=== PATIENT | female | born 1970 | race Caucasian/White ===

== ENCOUNTER 2019-02-11 00:33 | Inpatient (IN) | payer MEDICAID ==
[~2019-02-11] VITALS: Ht 162.6 cm; Wt 98.4 kg
--- NOTE | 2019-02-11 00:58 | NUR ---
PT BIBS. PT BEING DELUSIONAL, TALKING INCOHERENTLY, DOES NOT MAKE ANY SENSE. PT WALKING AROUND. NO ACUTE DISTRESS NOTED.
[2019-02-11] MEDS ORDERED: OLANZAPINE 10 MG VIAL IM ONE ×4 (01:00→06:04)
--- NOTE | 2019-02-11 01:05 | NUR ---
LINTER OPERATOR AT BEDSIDE FOR BLOOD DRAW.
--- NOTE | 2019-02-11 01:23 | NUR ---
PT BEING MANIC. TALKING NON STOP. SAFETY PRECAUTIONS IMPLEMENTED. SITTER AT BEDSIDE
[2019-02-11 01:24] LABS: BASOPHILS # (AUTO) 0.2 /CMM (0.0-0.2); EOSINOPHILS % (AUTO) 0.2 % (0.0-6.0); HEMATOCRIT 41 % (33-45); HEMOGLOBIN 13.5 g/dL (11.5-14.8); LYMPHOCYTES # (AUTO) 3.4 /CMM (0.8-4.8); MEAN CORPUSCULAR HGB CONC 33 g/dl (31.0-36.0); MEAN CORPUSCULAR VOLUME 89 fL (82-100); MONOCYTES # (AUTO) 1.1 /CMM (0.1-1.30); MONOCYTES % (AUTO) 5.8 % (2.0-12.0); NEUTROPHILS # (AUTO) 13.4 /CMM (1.8-8.9); PLATELET COUNT (AUTO) 384 /CMM (150-450); RED BLOOD CELL COUNT(AUTO) 4.63 MIL/uL (4.0-5.2); WHITE BLOOD COUNT (AUTO) 18.1 K/uL (4.3-11.0)
[2019-02-11 01:32] LABS: APPEARANCE,URINE Slightly Cloudy (CLEAR); BILIRUBIN,URINE SMALL (NEGATIVE); BLOOD, URINE Moderate Ery/uL (NEGATIVE); COLOR,URINE Yellow (YELLOW); KETONES,URINE 15 (NEGATIVE); LEUKOCYTE ESTERASE ,URINE Negative (NEGATIVE); NITRITE, URINE Negative (NEGATIVE); PROTEIN,URINE 100 mg/dl (NEGATIVE); UGLUCOSE Negative (NEGATIVE); UROBILINOGEN,URINE 0.2 EU/dL (0.2)
[2019-02-11 01:39] LABS: CALCIUM, SERUM 9.9 mg/dL (8.5-10.1); CARBON DIOXIDE 21 mmol/L (21-32); CHLORIDE 105 mmol/L (98-107); CREATININE 1.3 mg/dL (0.6-1.3); GLUCOSE 150 mg/dL (74-106); POTASSIUM 3.1 mmol/L (3.5-5.1); SODIUM SERUM 142 mmol/L (136-145); UREA NITROGEN, BLOOD 20 mg/dL (7-18)
[2019-02-11 01:43] LABS: ACETAMINOPHEN 0 ug/ml (10-30); ALANINE AMINOTRANSFERASE 13 U/L (12-78); ALBUMIN 4.1 g/dL (3.4-5.0); ALCOHOL, BLOOD < 3 mg/dL (0-0); ALKALINE PHOSPHATASE 101 U/L (46-116); ASPARTATE AMINOTRANSFERASE 15 U/L (15-37); BILIRUBIN,DIRECT 0.1 mg/dL (0.0-0.2); BILIRUBIN,TOTAL 0.3 mg/dL (0.2-1.0); SALICYLATE 2.3 mg/dL (2.8-20.0)
[2019-02-11 02:12] LABS: BACTERIA,URINE Moderate /HPF (None Seen); CALCIUM OXALATE CRYSTALS,UR Moderate /HPF (None Seen); SQUAMOUS EPITHELIAL CELL,UR Moderate /HPF (None Seen)
[2019-02-11] MEDS ORDERED: CEFTRIAXONE 1GM BAG (ER ONLY) 50 ML IV ONE (04:37)
[2019-02-11] MEDS ORDERED: CEFTRIAXONE 1GM BAG (ER ONLY) 1 GM/50 ML PIGGYBACK IV ONE (05:00)
[2019-02-11] MEDS ORDERED: IV NS 0.9% 1,000 ML BAG IV ONE (05:00)
--- NOTE | 2019-02-11 05:52 | NUR ---
PT TAKING OFF BP CUFF AND O2 SENSOR
--- NOTE | 2019-02-11 06:45 | NUR ---
Patient is resting comfortably in bed with eyes closed. Easily aroused. No acute distress noted
--- NOTE | 2019-02-11 08:17 | NUR ---
BREAKFAST TRAY GIVEN, SITTER FEEDS PATIENT AT BEDSIDE
--- NOTE | 2019-02-11 09:57 | NUR ---
SU and Social electronic gaming device supervisor Catherine Bond met with the pt. bedside for a psychosocial assessment. Per ED physician's note, Pt. is a 48-year-old female with uncertain past medical history but history of prior episodes of psychosis who presented with incoherent thoughts and manic behavior. Per doctor, on arrival, pt. was having delusions, pt was talking stating, Shane is the reason that she is in the emergency room. Pt. is alert and oriented x 2. Pt. is on 2 point restraints due to getting in and out of the bed and wandering into other patients' rooms. Pt. displayed manic behavior earlier this morning. Pt is able to state her date of and informed SW she lives close by. Pt. was able to confirm her social security number. Pt. appears to be delusional and has tangential thinking and speech. Pt. stated, " I didn't kill anybody." SW reassured pt. that she is safe. Pt. continues to display psychotic behaviors. Pt. will be medicated again per Manager E Learning Catherine Bond, who spoke with Dr. Pimentel. SU met with financial counselor Rachel regarding checking to see if pt. has any medical insurance since pt. informed SU she does. Rachel to follow up with SU.
[2019-02-11] MEDS ORDERED: LORAZEPAM 1 MG TABLET PO ONE (10:00)
[2019-02-11] MEDS ORDERED: LORAZEPAM 1 MG TABLET ONE (10:23)
[2019-02-11] MEDS ORDERED: HALOPERIDOL LACTATE INJ 5 MG/ML VIAL IM ONE (16:00)
[2019-02-11] MEDS ORDERED: diphenhydrAMINE HCL 50 MG/ML VIAL IM ONE (16:00)
[2019-02-11] MEDS ORDERED: LORAZEPAM INJ 2 MG/ML VIAL IM ONE (16:00)
[2019-02-11] MEDS ORDERED: HALOPERIDOL LACTATE INJ 5 MG/ML VIAL ONE (16:02)
[2019-02-11] MEDS ORDERED: LORAZEPAM INJ 2 MG/ML VIAL ONE (16:02)
[2019-02-11] MEDS ORDERED: diphenhydrAMINE HCL 50 MG/ML VIAL ONE (16:02)
--- NOTE | 2019-02-11 16:45 | NUR ---
REPORT GIVEN TO LESLY ALICIA, ACCEPTED BY DR. TAYLOR
[2019-02-11] MEDS ORDERED: MAG HYDROX/AL HYDROX/SIMETH 30 ML UDC PO PRN (17:30)
[2019-02-11] MEDS ORDERED: ACETAMINOPHEN 325 MG TABLET PO PRN (17:30)
[2019-02-11] MEDS ORDERED: MAGNESIUM HYDROXIDE 30 ML UDC PO PRN (17:30)
[2019-02-11] MEDS ORDERED: LORAZEPAM 0.5 MG TABLET PO PRN ×2 (17:30→23:30)
[2019-02-11] MEDS ORDERED: BLOOD SUGAR DIAGNOSTIC 1 EACH STRIP IN ONE (17:30)
[2019-02-11] MEDS ORDERED: TEMAZEPAM 7.5 MG CAPSULE PO PRN (17:30)
--- NOTE | 2019-02-11 18:42 | NUR ---
MULTIPLE DRILL OPERATOR NOTE: PATIENT IS A 48 YEAR OLD FEMALE ADMITTED TO [facility] ON A 5150 HOLD FOR DTO/GD. PER HOLD, "PATIENT BIB SELF KNOWS THIS IS [facility] AND HER NAME. PATIENT TO PSYCHOTIC TO GIVE A HISTORY OR ANSWER OTHER QUESTIONS IN A COHERENT MANNER. PATIENT IS VERY AGITATED AND THREATENING. PATIENT IS BELLIGERENT. PATIENT HAD TO BE IN RESTRAINTS. PATIENT GIVEN MULTIPLE MEDICATIONS IN THE ED TO NO AVAIL. PATIENT IS DISORGANIZED. PATIENT NOT ABLE TO PROVIDE FOR HER FOOD FPC OR CLOTHING DUE TO MENTAL DISORDER AND IS A DANGER TO OTHERS. PATIENT DOES NOT FOLLOW DIRECTIONS." UPON FACE TO FACE ASSESSMENT, PATIENT IS ALERT X1. CONFUSED, DISORIENTED, AGITATED, UNKEMPT, DISHEVELED, CLEAR SPEECH. DENIES SI/HI AT THIS TIME. AGGRESSIVE, ANXIOUS, UNCOOPERATIVE, GUARDED, SUSPICIOUS, BELLIGERENT. POOR IMPULSE CONTROL. RESTRICTED AFFECT. REFUSES VITAL SIGNS, SKIN CHECK, SIGNING ADMITTING PAPERWORK. POOR HISTORIAN, PMH, ALLERGIES AND GENERAL QUESTIONS ABOUT PATIENT IS UNKNOWN. HANDBOOK GIVEN WITH PATIENT'S RIGHTS AND GUIDE TO PRESCRIPTIONS. DR TAYLOR AWARE OF ADMISSION WITH ADMITTING PSYCHIATRIC ORDERS. CONTACTED [facility] TO INFORM RODRIGUEZ OF ADMISSION. WILL HAVE FOLLOWING SHIFT FOLLOW UP WITH IT.
--- NOTE | 2019-02-11 19:45 | NUR ---
REFUSED MRSA PATIENT REFUSED MRSA SWAB TO BE DONE, ENCOURAGED & EXPLAINED RISKS & BENEFITS BUT PT. CONTINUED TO REFUSE.
--- NOTE | 2019-02-11 19:45 | NUR ---
REFUSED VITALS PATIENT REFUSED VITALS AT THIS TIME DESPITE OF RISKS & BENEFIT EXPLANATIONS. WILL RE APPROACH AGAIN TO CHECK VITALS. PT FELL ASLEEP. WILL CONTINUE TO MONITOR CLOSELY FOR ANY CHANGES.
[2019-02-12 08:00] VITALS: BP 135/89
[2019-02-12 08:20] LABS: CHOLESTEROL 157 mg/dL (<200); HDL CHOLESTEROL 55 mg/dL (40-60); LDL 91 mg/dL (0-99); TRIGLYCERIDES 103 mg/dL (30-150)
[2019-02-12 08:21] LABS: ALBUMIN 3.5 g/dL (3.4-5.0); BILIRUBIN,TOTAL 0.4 mg/dL (0.2-1.0); CALCIUM, SERUM 9.2 mg/dL (8.5-10.1); CREATININE 0.9 mg/dL (0.6-1.3); POTASSIUM 4.1 mmol/L (3.5-5.1); TOTAL PROTEIN, SERUM 7.2 g/dL (6.4-8.2)
--- NOTE | 2019-02-12 08:25 | NUR ---
RN NOTE- PT AGITATED, REFUSING CARE AND MEDS, RAISING VOICE TEARFUL... ATIVAN OFFERED AND REFUSED.
--- NOTE | 2019-02-12 11:26 | NUR ---
Pt. claimed that she is allergy on Haldol and it will make her agitated.
[2019-02-12] MEDS: OLANZAPINE 5 MG TABLET PO SCH ×2 (12:37→17:26)
[2019-02-12 16:00] VITALS: BP 137/83
[2019-02-12 20:13] VITALS: BP 144/73
[2019-02-13 07:36] LABS: BASOPHILS # (AUTO) 0.1 /CMM (0.0-0.2); BASOPHILS % (AUTO) 0.7 % (0.0-2.0); EOSINOPHILS % (AUTO) 2.7 % (0.0-6.0); HEMATOCRIT 39 % (33-45); HEMOGLOBIN 12.9 g/dL (11.5-14.8); LYMPHOCYTES # (AUTO) 4.7 /CMM (0.8-4.8); LYMPHOCYTES % (AUTO) 47.9 % (20.0-44.0); MEAN CORPUSCULAR HGB CONC 33 g/dl (31.0-36.0); MEAN CORPUSCULAR VOLUME 89 fL (82-100); MONOCYTES # (AUTO) 0.7 /CMM (0.1-1.30); NEUTROPHILS # (AUTO) 4.1 /CMM (1.8-8.9); NEUTROPHILS % (AUTO) 41.7 % (43.0-81.0); PLATELET COUNT (AUTO) 289 /CMM (150-450); RED BLOOD CELL COUNT(AUTO) 4.35 MIL/uL (4.0-5.2); WHITE BLOOD COUNT (AUTO) 9.9 K/uL (4.3-11.0)
[2019-02-13 07:46] LABS: CREATININE 0.9 mg/dL (0.6-1.3); POTASSIUM 4.1 mmol/L (3.5-5.1)
[2019-02-13 08:00] VITALS: BP 148/61
[2019-02-13] MEDS: OLANZAPINE 5 MG TABLET PO SCH ×2 (08:18→17:15)
--- NOTE | 2019-02-13 11:40 | NUR ---
RN NOTE- PT C/O INDIGESTION. MAALOX GIVEN.
[2019-02-13 16:00] VITALS: BP 120/81
[2019-02-13 20:43] VITALS: BP 101/51
[2019-02-14 08:00] VITALS: BP 129/68
[2019-02-14] MEDS: OLANZAPINE 5 MG TABLET PO SCH (08:25)
--- NOTE | 2019-02-14 10:45 | NUR ---
Friend Contact: SU called the pts friend, Yue ([phone]), and she stated that the pts home is an appropriate discharge. She stated that the pt has work today and needs to call her boss about being in the hospital and the SW passed along the message.
--- NOTE | 2019-02-14 10:55 | NUR ---
Initial Discharge Plan: Pt currently resides at her home located at [address] [place] [address]; ([phone]). Per pt, she would like to return to her home. SU will work with the MD and the pt regarding appropriate discharge planning. SW will form a safe and proper plan.
--- NOTE | 2019-02-14 11:24 | NUR ---
Discharge Note: Pt will be discharged back to her home located at [address] [place] [address], [address], [place] [address]; [phone]. Pt was transported via taxi as her home is within one mile of the hospital and the pt was not able to find anyone to pick her up. Pt was discharged at 11:30AM. Pts friend, Yue ([phone]), was informed of the discharge. Upon discharge, the pt appeared to be in a euthymic mood and presented with an anxious and distressed affect. Pt denied both suicidal and homicidal ideation as well as auditory and visual hallucinations. Pt was referred to be under the care of psychiatrist, Dr. David Ortiz, located at [address] [place] [address]; and will continue to be under the care of her 911 emergency dispatcher, Dr. Soto, located at [address], [place] [address]; ; and a fax of records was sent to: [phone].
--- NOTE | 2019-02-14 11:31 | NUR ---
RN NOTE- PT DC HOME AT THIS TIME. ALERT ORIENTED TO PERSON PLACE RTIME AND PURPOSE. VDS STABLE. DENIES SI HI AH VH AT TIME OF DC. AFTERCARE AND MEDICAL INSTRUCTIONS REVIEWED WITH VERBALIZED PT UNDERSTANDING. VALUABLES RETURNED AND SIGNED FOR. ID [id number] REMOVED. ESCORTED TO TAXI BY STAFF.
== END 2019-02-14 11:25 | disposition home or self-care (01) | DRG 753 ==
LOC: ER 00:35 → GPS 17:17
PROVIDERS: ADMIT Psychiatry & Neurology Psychiatry; ATTEND Internal Medicine
DX: F31.2 Bipolar disorder, current episode manic severe with psychotic features (principal); D72.829 Elevated white blood cell count, unspecified; E87.6 Hypokalemia; F41.9 Anxiety disorder, unspecified; Z73.6 Limitation of activities due to disability; I10 Essential (primary) hypertension; F23 Brief psychotic disorder; N39.0 Urinary tract infection, site not specified
CPT/HCPCS: 36415; 80048-TC; 80053-TC; 80061-TC; 80076-TC; 80305; 81000-TC; 82962-TC; 84703-TC; 85025-TC; 87081-TC; 87086-TC; G0480; J0696; J1200; J1630; J2060; J3490; J7030

== ENCOUNTER 2019-05-07 07:35 | Emergency (ER) | payer BC, MEDICAID ==
[~2019-05-07] VITALS: Ht 167.6 cm; Wt 99.8 kg
--- NOTE | 2019-05-07 07:42 | NUR ---
Came in for "[facility]- they keep telling me to make sure everyone is ok", To Er bed 12, hooked to monitor, changed to hosp gown, warm blanket provided, Dr Webb at bedside for eval. spoke to her friend for history. All belongings taken from patient and placed on patients belongings locker. Patient kept on lingering around ER. Per friend, patient has been off her bipolar medication "for quite some time". "She hasn't been making sense lately, she has been posting nonsense messages at [employer]". Will keep on monitoring patient accordingly, Kept safe and comfortable.
[2019-05-07] MEDS ORDERED: ZIPRASIDONE MESYLATE 20 MG/VIAL VIAL IM ONE ×2 (08:27→08:30)
[2019-05-07 08:53] LABS: APPEARANCE,URINE Slightly Cloudy (CLEAR); BILIRUBIN,URINE SMALL (NEGATIVE); BLOOD, URINE Moderate Ery/uL (NEGATIVE); COLOR,URINE Yellow (YELLOW); KETONES,URINE 15 (NEGATIVE); LEUKOCYTE ESTERASE ,URINE Negative (NEGATIVE); NITRITE, URINE Negative (NEGATIVE); PH,URINE 5.5 (5.0-8.0); PROTEIN,URINE 100 mg/dl (NEGATIVE); UGLUCOSE Negative (NEGATIVE); UROBILINOGEN,URINE 0.2 EU/dL (0.2)
[2019-05-07 08:57] LABS: BASOPHILS # (AUTO) 0.1 /CMM (0.0-0.2); BASOPHILS % (AUTO) 0.7 % (0.0-2.0); CALCIUM, SERUM 9.2 mg/dL (8.5-10.1); CARBON DIOXIDE 26 mmol/L (21-32); CHLORIDE 101 mmol/L (98-107); CREATININE 0.8 mg/dL (0.6-1.3); EOSINOPHILS % (AUTO) 0.7 % (0.0-6.0); GLUCOSE 132 mg/dL (74-106); HEMATOCRIT 40 % (33-45); HEMOGLOBIN 13.3 g/dL (11.5-14.8); LYMPHOCYTES # (AUTO) 2.9 /CMM (0.8-4.8); LYMPHOCYTES % (AUTO) 24.9 % (20.0-44.0); MEAN CORPUSCULAR HGB CONC 33 g/dl (31.0-36.0); MEAN CORPUSCULAR VOLUME 89 fL (82-100); MONOCYTES # (AUTO) 0.7 /CMM (0.1-1.30); MONOCYTES % (AUTO) 6.4 % (2.0-12.0); NEUTROPHILS # (AUTO) 7.9 /CMM (1.8-8.9); NEUTROPHILS % (AUTO) 67.3 % (43.0-81.0); PLATELET COUNT (AUTO) 315 /CMM (150-450); POTASSIUM 2.9 mmol/L (3.5-5.1); RED BLOOD CELL COUNT(AUTO) 4.55 MIL/uL (4.0-5.2); SODIUM SERUM 138 mmol/L (136-145); UREA NITROGEN, BLOOD 14 mg/dL (7-18); WHITE BLOOD COUNT (AUTO) 11.7 K/uL (4.3-11.0)
[2019-05-07 09:02] LABS: ACETAMINOPHEN < 2 ug/ml (10-30); ALANINE AMINOTRANSFERASE 14 U/L (12-78); ALCOHOL, BLOOD < 3 mg/dL (0-0); ALKALINE PHOSPHATASE 95 U/L (46-116); ASPARTATE AMINOTRANSFERASE 19 U/L (15-37); BILIRUBIN,DIRECT 0.1 mg/dL (0.0-0.2); BILIRUBIN,TOTAL 0.5 mg/dL (0.2-1.0); SALICYLATE 2.8 mg/dL (2.8-20.0); TOTAL PROTEIN, SERUM 7.4 g/dL (6.4-8.2)
--- NOTE | 2019-05-07 09:10 | NUR ---
CALLED [facility] [phone] [facility].
[2019-05-07 09:11] LABS: BACTERIA,URINE Few /HPF (None Seen)
[2019-05-07 09:12] LABS: SQUAMOUS EPITHELIAL CELL,UR Few /HPF (None Seen); WBC,URINE 0-2 /HPF (0-3)
--- NOTE | 2019-05-07 09:29 | NUR ---
KIMBERLEY CALLED BACK SHE WILL BE HERE WITHIN AN HOUR.
[2019-05-07] MEDS ORDERED: POTASSIUM CHLORIDE 20 MEQ TAB.PRT.SR PO ONE ×2 (09:30→09:34)
[2019-05-07] MEDS ORDERED: LORAZEPAM 1 MG TABLET ONE (12:50)
[2019-05-07] MEDS ORDERED: OLANZAPINE 5 MG TABLET ONE (12:50)
--- NOTE | 2019-05-07 12:59 | NUR ---
Patient discharged to home with friends Jenni in stable condition. Written and verbal after care instructions given. Friend verbalizes understanding of instruction.
[2019-05-07] MEDS ORDERED: LORAZEPAM 1 MG TABLET PO ONE (13:00)
[2019-05-07] MEDS ORDERED: OLANZAPINE 5 MG TABLET PO ONE (13:00)
[2019-05-07 13:02] VITALS: BP 141/80
== END 2019-05-07 13:03 | disposition home or self-care (01) ==
LOC: ER 07:36
DX: F23 Brief psychotic disorder (principal); F17.200 Nicotine dependence, unspecified, uncomplicated; Z88.8 Allergy status to other drugs, medicaments and biological substances
CPT/HCPCS: 36415; 80048; 80076; 80305; 80307; 80329; 81001; 85025; 96372; 99283; G0480; J3486; 81000-TC

== ENCOUNTER 2019-05-09 07:34 | Emergency (ER) | payer SELFPAY ==
[~2019-05-09] VITALS: Ht 167.6 cm; Wt 102.5 kg
--- NOTE | 2019-05-09 07:36 | NUR ---
PT SELF PRESENTS TO ED BED 12, AGITATED STEAM SHOVEL RUNNER. SEEN 2 DAYS AGO FOR SAME REASON. PLACED ON MONITOR. SITTER AT BEDSIDE. AWAITING MD BARON.
--- NOTE | 2019-05-09 07:41 | NUR ---
DR CALDERON AT BEDSIDE FOR EVAL.
[2019-05-09] MEDS ORDERED: OLANZAPINE 5 MG TABLET ONE ×2 (07:44→08:43)
[2019-05-09] MEDS ORDERED: LORAZEPAM 1 MG TABLET ONE ×2 (07:44→08:43)
[2019-05-09] MEDS ORDERED: OLAN5TAB3 PO (07:55)
[2019-05-09] MEDS ORDERED: LORAZEPAM 1 MG TABLET PO ONE ×2 (08:00→08:30)
[2019-05-09] MEDS ORDERED: OLANZAPINE 5 MG TABLET PO ONE ×2 (08:00→08:30)
[2019-05-09 09:05] LABS: BASOPHILS # (AUTO) 0.2 /CMM (0.0-0.2); BASOPHILS % (AUTO) 1.2 % (0.0-2.0); EOSINOPHILS % (AUTO) 1.1 % (0.0-6.0); HEMATOCRIT 43 % (33-45); HEMOGLOBIN 14.2 g/dL (11.5-14.8); LYMPHOCYTES # (AUTO) 2.5 /CMM (0.8-4.8); LYMPHOCYTES % (AUTO) 19.9 % (20.0-44.0); MEAN CORPUSCULAR HGB CONC 33 g/dl (31.0-36.0); MEAN CORPUSCULAR VOLUME 90 fL (82-100); MONOCYTES # (AUTO) 0.7 /CMM (0.1-1.30); MONOCYTES % (AUTO) 5.6 % (2.0-12.0); NEUTROPHILS # (AUTO) 9.2 /CMM (1.8-8.9); NEUTROPHILS % (AUTO) 72.2 % (43.0-81.0); PLATELET COUNT (AUTO) 330 /CMM (150-450); RED BLOOD CELL COUNT(AUTO) 4.76 MIL/uL (4.0-5.2); WHITE BLOOD COUNT (AUTO) 12.8 K/uL (4.3-11.0)
[2019-05-09 09:10] LABS: APPEARANCE,URINE Clear (CLEAR); BILIRUBIN,URINE Negative (NEGATIVE); BLOOD, URINE Trace-lysed Ery/uL (NEGATIVE); COLOR,URINE Yellow (YELLOW); KETONES,URINE Negative (NEGATIVE); LEUKOCYTE ESTERASE ,URINE Negative (NEGATIVE); NITRITE, URINE Negative (NEGATIVE); PH,URINE 5.5 (5.0-8.0); PROTEIN,URINE Negative (NEGATIVE); UGLUCOSE Negative (NEGATIVE); UROBILINOGEN,URINE 0.2 EU/dL (0.2)
[2019-05-09 09:12] LABS: CALCIUM, SERUM 9.6 mg/dL (8.5-10.1); CARBON DIOXIDE 28 mmol/L (21-32); CHLORIDE 102 mmol/L (98-107); CREATININE 1.1 mg/dL (0.6-1.3); GLUCOSE 100 mg/dL (74-106); POTASSIUM 3.3 mmol/L (3.5-5.1); SODIUM SERUM 141 mmol/L (136-145); UREA NITROGEN, BLOOD 26 mg/dL (7-18)
[2019-05-09 09:17] LABS: ALANINE AMINOTRANSFERASE 14 U/L (12-78); ALBUMIN 4.3 g/dL (3.4-5.0); ALCOHOL, BLOOD < 3 mg/dL (0-0); ALKALINE PHOSPHATASE 99 U/L (46-116); ASPARTATE AMINOTRANSFERASE 17 U/L (15-37); BACTERIA,URINE Few /HPF (None Seen); BILIRUBIN,DIRECT 0.1 mg/dL (0.0-0.2); BILIRUBIN,TOTAL 0.2 mg/dL (0.2-1.0); SALICYLATE 3.2 mg/dL (2.8-20.0); SQUAMOUS EPITHELIAL CELL,UR Moderate /HPF (None Seen); TOTAL PROTEIN, SERUM 8.2 g/dL (6.4-8.2); WBC,URINE 0-2 /HPF (0-3)
--- NOTE | 2019-05-09 09:17 | NUR ---
CALLED [facility] TO SEE ABOUT BED AVAILABILITY. THEY ARE WAITING FOR THE MORNING DISCHARGE BUT STILL WANT US TO FAX CLINICALS OVER.
[2019-05-09 09:18] LABS: ACETAMINOPHEN 0 ug/ml (10-30)
--- NOTE | 2019-05-09 11:11 | NUR ---
PT IS AMBULATORY W/ STEADY GAIT. DENIES SI/HI, STATES "I WANT TO GO HOME." RE EVALUATED BY DR CALDERON. DISCHARGED HOME IN STABLE CONDITION.
--- NOTE | 2019-05-09 11:14 | NUR ---
PT REFUSED TO SIGN ACI.
[2019-05-09 11:15] VITALS: BP 136/99
== END 2019-05-09 11:15 | disposition home or self-care (01) ==
LOC: ER 07:35
DX: F23 Brief psychotic disorder (principal); F17.200 Nicotine dependence, unspecified, uncomplicated; Z60.2 Problems related to living alone; Z79.899 Other long term (current) drug therapy; Z88.8 Allergy status to other drugs, medicaments and biological substances
CPT/HCPCS: 36415; 80048; 80076; 80305; 80307; 80329; 81001; 85025; 99284; G0480; 81000-TC

== ENCOUNTER 2019-06-23 19:45 | Emergency (ER) | payer SELFPAY ==
[~2019-06-23] VITALS: Ht 167.6 cm; Wt 102.5 kg
[~2019-06-23 19:45] MED LIST: OLAN5TAB3 PO
--- NOTE | 2019-06-23 19:52 | NUR ---
PT BIBRA FROM STREET FOR BIZARRE BEHAVIOR. PER RA, PT WAS FOUND ROLLING AROUND IN THE STREET NAKED. PT HAS FLIGHTS OF IDEAS, APPEARS DISSHEVELED. VITAL SIGNS STABLE. RESPIRATIONS EVEN AND UNLABORED. NO ACUTE DISTRESS NOTED AT THIS TIME. SITTER AT BEDSIDE. WILL CONTINUE TO MONITOR.
[2019-06-23] MEDS ORDERED: OLANZAPINE 5 MG TABLET ONE (19:56)
--- NOTE | 2019-06-23 19:57 | NUR ---
RADIOLOGY AT BEDSIDE FOR XRAY.
[2019-06-23] MEDS ORDERED: OLANZAPINE 5 MG TABLET PO ONE (20:00)
--- NOTE | 2019-06-23 20:09 | NUR ---
DESK INTERVIEWER AT BEDSIDE FOR BLOOD DRAW
--- NOTE | 2019-06-23 20:12 | NUR ---
PT UNABLE TO PROVIDE URINE SAMPLE AT THIS TIME. MD SYED
[2019-06-23 20:13] LABS: BASOPHILS # (AUTO) 0.1 /CMM (0.0-0.2); BASOPHILS % (AUTO) 0.6 % (0.0-2.0); EOSINOPHILS % (AUTO) 0.4 % (0.0-6.0); HEMATOCRIT 39 % (33-45); HEMOGLOBIN 12.9 g/dL (11.5-14.8); LYMPHOCYTES # (AUTO) 3.3 /CMM (0.8-4.8); MEAN CORPUSCULAR HGB CONC 33 g/dl (31.0-36.0); MEAN CORPUSCULAR VOLUME 89 fL (82-100); MONOCYTES # (AUTO) 0.9 /CMM (0.1-1.30); MONOCYTES % (AUTO) 7.4 % (2.0-12.0); NEUTROPHILS # (AUTO) 8.2 /CMM (1.8-8.9); NEUTROPHILS % (AUTO) 65.6 % (43.0-81.0); PLATELET COUNT (AUTO) 304 /CMM (150-450); RED BLOOD CELL COUNT(AUTO) 4.35 MIL/uL (4.0-5.2); WHITE BLOOD COUNT (AUTO) 12.5 K/uL (4.3-11.0)
--- NOTE | 2019-06-23 20:18 | NUR ---
URINE COLLECTED AND SENT TO LAB.
[2019-06-23 20:22] LABS: BILIRUBIN,URINE SMALL (NEGATIVE); BLOOD, URINE Small Ery/uL (NEGATIVE); COLOR,URINE Yellow (YELLOW); KETONES,URINE 15 (NEGATIVE); LEUKOCYTE ESTERASE ,URINE Negative (NEGATIVE); NITRITE, URINE Negative (NEGATIVE); PROTEIN,URINE 100 mg/dl (NEGATIVE); UGLUCOSE Negative (NEGATIVE); UROBILINOGEN,URINE 0.2 EU/dL (0.2)
[2019-06-23 20:23] LABS: APPEARANCE,URINE SLIGHTLY HAZY (CLEAR)
[2019-06-23 20:36] LABS: SQUAMOUS EPITHELIAL CELL,UR Few /HPF (None Seen)
[2019-06-23 20:37] LABS: BACTERIA,URINE Few /HPF (None Seen); HYALINE CASTS, URINE Few /LPF (None Seen)
[2019-06-23 20:42] LABS: CALCIUM, SERUM 9.7 mg/dL (8.5-10.1); CREATININE 1.4 mg/dL (0.6-1.3); POTASSIUM 3.2 mmol/L (3.5-5.1)
[2019-06-23 20:47] LABS: ALBUMIN 4.2 g/dL (3.4-5.0); BILIRUBIN,DIRECT 0.2 mg/dL (0.0-0.2); BILIRUBIN,TOTAL 0.7 mg/dL (0.2-1.0); SALICYLATE 4.7 mg/dL (2.8-20.0); TOTAL PROTEIN, SERUM 7.8 g/dL (6.4-8.2)
[2019-06-23] MEDS ORDERED: diphenhydrAMINE HCL 50 MG/ML VIAL IM ONE (21:00)
[2019-06-23] MEDS ORDERED: LORAZEPAM INJ 2 MG/ML VIAL IV ONE (21:00)
[2019-06-23] MEDS: LORAZEPAM INJ 2 MG/ML VIAL IM ONE ×2 (22:35→22:49)
[2019-06-23] MEDS ORDERED: LORAZEPAM INJ 2 MG/ML VIAL ONE (22:45)
--- NOTE | 2019-06-23 23:58 | NUR ---
Patient is resting comfortably in bed. Easily aroused. VSS.
--- NOTE | 2019-06-24 01:15 | NUR ---
PT ASLEEP, NO ACUTE DISTRESS NOTED, RESP EVEN AND UNLABORED. CALL LIGHT WITHIN REACH. WILL CONTINUE TO MONITOR PT CLOSELY. 1:1 SITTER AT BEDSIDE.
--- NOTE | 2019-06-24 03:15 | NUR ---
Patient is resting comfortably in bed. Easily aroused. VSS.
--- NOTE | 2019-06-24 06:02 | NUR ---
PT ASLEEP, NO ACUTE DISTRESS NOTED, RESP EVEN AND UNLABORED. CALL LIGHT WITHIN REACH. WILL CONTINUE TO MONITOR PT CLOSELY. 1:1 SITTER AT BEDSIDE.
--- NOTE | 2019-06-24 08:02 | NUR ---
PT IN BED ASLEEP, HOOKED TO MONITOR, NO ACUTE DISTRESS NOTED, RESP EVEN AND UNLABORED. CALL LIGHT WITHIN REACH. WILL CONTINUE TO MONITOR ACCORDINGLY
--- NOTE | 2019-06-24 09:58 | NUR ---
PT IN BED ASLEEP, HOOKED TO MONITOR, NO ACUTE DISTRESS NOTED, RESP EVEN AND UNLABORED. CALL LIGHT WITHIN REACH. WILL CONTINUE TO MONITOR ACCORDINGLY
--- NOTE | 2019-06-24 11:46 | NUR ---
PT IN BED ASLEEP, EASILY AROUSABLE BY VOICE, HOOKED TO MONITOR, NO ACUTE DISTRESS NOTED, RESP EVEN AND UNLABORED. CALL LIGHT WITHIN REACH. WILL CONTINUE TO MONITOR ACCORDINGLY
--- NOTE | 2019-06-24 12:08 | NUR ---
PROVIDED LUNCH TRAY, TOLERATING PO WELL.
--- NOTE | 2019-06-24 14:02 | NUR ---
PT IN BED AWAKE, STILL NOTED WITH FLIGHT OF IDEAS AND PARANOIA, HOOKED TO MONITOR, NO ACUTE DISTRESS NOTED, RESP EVEN AND UNLABORED. CALL LIGHT WITHIN REACH. WILL CONTINUE TO MONITOR ACCORDINGLY
--- NOTE | 2019-06-24 16:06 | NUR ---
FOLLOWED UP WITH [facility] ABOUT PT BEING TRASNFERED. SPOKE WITH [facility] AND THEY DID NOT RECIEVE CLINICALS. WILL REFAX CLINICALS.
--- NOTE | 2019-06-24 16:11 | NUR ---
CALLED [facility] FOR CRISIS EVAL.
--- NOTE | 2019-06-24 16:23 | NUR ---
CALLED [facility] FOR PLACEMENT. WITHOUT INSURANCE PT WILL NOT BE ABLE TO BE ACCEPTED ANYWHERE. ART RECOMMENDS TO MEDICATE PT.
[2019-06-24] MEDS ORDERED: OLANZAPINE 10 MG VIAL IM ONE ×2 (17:00→17:12)
--- NOTE | 2019-06-24 18:27 | NUR ---
PT IN BED AWAKE, STILL NOTED WITH FLIGHT OF IDEAS AND PARANOIA, ASSURED PATIENT THAT SHE IS SAFE HERE, HOOKED TO MONITOR, NO ACUTE DISTRESS NOTED, RESP EVEN AND UNLABORED. CALL LIGHT WITHIN REACH. WILL CONTINUE TO MONITOR ACCORDINGLY
--- NOTE | 2019-06-24 19:09 | NUR ---
ENDORSEMENT PROVIDED TO DEVORAH ALICIA FOR STEPHEN
--- NOTE | 2019-06-24 21:46 | NUR ---
Patient is resting comfortably in bed. Easily aroused. VSS.
[2019-06-24] MEDS ORDERED: POTASSIUM CHLORIDE 20 MEQ TAB.PRT.SR PO ONE ×2 (23:19→23:30)
--- NOTE | 2019-06-24 23:23 | NUR ---
Patient discharged to home in stable condition. Written and verbal after care instructions given. Patient verbalizes understanding of instruction. Pt ambulated with steady gait. Left in a Taxi.
[2019-06-24 23:24] VITALS: BP 121/72
== END 2019-06-24 23:25 | disposition home or self-care (01) ==
LOC: ER 19:45
DX: F23 Brief psychotic disorder (principal); F31.9 Bipolar disorder, unspecified; E87.6 Hypokalemia; F17.200 Nicotine dependence, unspecified, uncomplicated; Z88.8 Allergy status to other drugs, medicaments and biological substances; Z79.899 Other long term (current) drug therapy
CPT/HCPCS: 36415; 71045; 80048; 80076; 80305; 80307; 80329; 81001; 84702; 84703; 85025; 96372 ×2; 99285; G0480; J2060; J3490; 81000-TC